=== PATIENT | female | born 1940 | race Caucasian/White ===

== ENCOUNTER 2017-01-28 20:27 | Inpatient (IN) | payer MEDICARE, OTHER ==
[2017-01-28 21:09] LABS: BASOPHIL 0.4 % (0-2); EOSINOPHIL 1.1 % (0-7); HCT 39.7 % (37.0-47.0); HGB 14.2 g/dl (12.5-16.0); MCH 31.4 pg (25.0-31.0); MCHC 35.8 g/dL (32.0-36.0); MCV 87.8 fL (78.0-100.0); MONOCYTE 10.7 % (0-12); MPV 9.8 fL (6.0-9.5); NEUTROPHIL 50.8 % (41-80); PLT 222 K/uL (150-400); RBC 4.52 M/uL (4.20-5.40); WBC 5.3 K/uL (4.0-10.5)
[2017-01-28 21:21] LABS: INR 0.92 (0.9-1.2); PTT 35.8 SECONDS (23.2-31.4)
[2017-01-28 21:28] LABS: ALBUMIN 4.6 g/dL (3.4-4.8); BILIRUBIN - TOTAL 0.6 mg/dL (0.1-1.0); CREATININE 0.6 mg/dL (0.5-1.0); MAGNESIUM 2.35 mg/dL (1.40-2.10); POTASSIUM 3.5 mmol/L (3.5-5.1); TOTAL PROTEIN 7.6 g/dL (6.4-8.3)
[2017-01-28 21:31] LABS: MYOGLOBIN 31 ng/mL (26-65); PRO-BNP 281 pg/mL (0-450); TROPONIN T < 0.010 ng/mL
[2017-01-29 02:18] LABS: BASOPHIL 0.1 % (0-2); EOSINOPHIL 0.1 % (0-7); HGB 14.1 g/dl (12.5-16.0); LYMPHOCYTE 15.3 % (15-48); MCH 31.5 pg (25.0-31.0); MCHC 36.2 g/dL (32.0-36.0); MCV 87.2 fL (78.0-100.0); MONOCYTE 5.4 % (0-12); MPV 9.5 fL (6.0-9.5); NEUTROPHIL 79.1 % (41-80); PLT 230 K/uL (150-400); RBC 4.47 M/uL (4.20-5.40); RDW 12.8 % (11.5-14.0)
[2017-01-29 02:42] LABS: CKMB 2.53 ng/mL (0.97-4.94); TROPONIN T < 0.010 ng/mL
[2017-01-29 02:45] LABS: CREATININE 0.5 mg/dL (0.5-1.0); MAGNESIUM 2.09 mg/dL (1.40-2.10)
[2017-01-29 09:35] LABS: CKMB 2.63 ng/mL (0.97-4.94); TROPONIN T < 0.010 ng/mL
[2017-01-29 09:56] LABS: CREATININE 0.6 mg/dL (0.5-1.0); POTASSIUM 3.9 mmol/L (3.5-5.1)
[2017-01-30 04:40] LABS: BASOPHIL 0.4 % (0-2); EOSINOPHIL 1.1 % (0-7); HCT 37.7 % (37.0-47.0); HGB 13.2 g/dl (12.5-16.0); LYMPHOCYTE 36.8 % (15-48); MCH 31.2 pg (25.0-31.0); MCV 89.1 fL (78.0-100.0); MONOCYTE 12.4 % (0-12); MPV 10.3 fL (6.0-9.5); NEUTROPHIL 49.3 % (41-80); PLT 222 K/uL (150-400); RBC 4.23 M/uL (4.20-5.40); RDW 13.1 % (11.5-14.0); WBC 4.8 K/uL (4.0-10.5)
[2017-01-30 04:52] LABS: CREATININE 0.8 mg/dL (0.5-1.0); MAGNESIUM 2.16 mg/dL (1.40-2.10); POTASSIUM 4.5 mmol/L (3.5-5.1)
[2017-01-30] MEDS ORDERED: ALLEGRA ALLERG180 MG PO (14:35)
[2017-01-30] MEDS ORDERED: PREMARIN0.625 MG PO (14:35)
[2017-01-30] MEDS ORDERED: LIPITOR20 MG PO (14:36)
[2017-01-30] MEDS ORDERED: TOPROL XL 50 MG50 MG PO (14:36)
[2017-01-30] MEDS ORDERED: ASPIRIN CHEWABL81 MG PO (14:36)
[2017-01-30] MEDS ORDERED: SYNTHROID112 MCG PO (14:36)
[2017-01-30] MEDS ORDERED: MAG-OXIDE 400M400 MG PO (14:37)
[2017-01-30] MEDS ORDERED: VITAMIN B-121000 MC1 PO (14:37)
[2017-01-30] MEDS ORDERED: DIOVAN HCT 3201 EAC1 PO (14:37)
== END 2017-01-30 12:30 | disposition home or self-care (01) | DRG 305 ==
LOC: FER 20:27 → FTCU 22:35
PROVIDERS: Emergency Medicine; Internal Medicine Cardiovascular Disease; ADMIT Internal Medicine
DX: I16.1 Hypertensive emergency (principal); E03.9 Hypothyroidism, unspecified; E78.5 Hyperlipidemia, unspecified; I25.118 Atherosclerotic heart disease of native coronary artery with other forms of angina pectoris; E87.6 Hypokalemia; Z79.82 Long term (current) use of aspirin; Z95.1 Presence of aortocoronary bypass graft; Z82.3 Family history of stroke
CPT/HCPCS: 36415; 71010; 80048; 80053; 80061; 82550; 82553; 83036; 83735; 83874; 83880; 84443; 84484; 85025; 85610; 85730; 93005; C9113; G0378; J1644; J2405

== ENCOUNTER 2021-05-02 02:46 | Emergency (ER) | payer MEDICARE, OTHER ==
[~2021-05-02] VITALS: Ht 157.5 cm; Wt 51.8 kg
[~2021-05-02 02:46] MED LIST: ALLEGRA ALLERG180 MG PO; ASPIRIN CHEWABL81 MG PO; DIOVAN HCT 3201 EAC1 PO; LIPITOR20 MG PO; MAG-OXIDE 400M400 MG PO; PREMARIN0.625 MG PO; SYNTHROID112 MCG PO; TOPROL XL 50 MG50 MG PO; VITAMIN B-121000 MC1 PO
[2021-05-02 03:18] LABS: BASOPHIL 0.5 % (0-2); EOSINOPHIL 1.8 % (0-7); HCT 40.2 % (37.0-47.0); HGB 13.9 g/dl (12.5-16.0); LYMPHOCYTE 41.6 % (15-48); MCH 31.7 pg (25.0-31.0); MCHC 34.6 g/dL (32.0-36.0); MCV 91.6 fL (78.0-100.0); MONOCYTE 8.4 % (0-12); MPV 9.6 fL (6.0-9.5); NEUTROPHIL 47.1 % (41-80); NRBC 0; PLT 209 K/uL (150-400); RBC 4.39 M/uL (4.20-5.40); RDW 12.3 % (11.5-14.0); WBC 6.2 K/uL (4.0-10.5)
[2021-05-02 03:26] LABS: INR 0.98 (0.9-1.2); PROTHROMBIN TIME 12.4 SECONDS (11.8-13.4); PTT 35.5 SECONDS (24.4-34.7)
[2021-05-02 03:27] LABS: D-DIMER 0.42 ug/mLFEU (0.00-0.41)
[2021-05-02 03:40] LABS: ALBUMIN 4.1 g/dL (3.4-5.0); BILIRUBIN - TOTAL 0.6 mg/dL (0.2-1.0); CREATININE 0.75 mg/dL (0.51-0.95); FT4 (FREE T4) 1.5 ng/dL (0.76-1.46); GLOBULIN (CALCULATION) 3.8 g/dL; POTASSIUM 3.4 mmol/L (3.5-5.1); TOTAL PROTEIN 7.9 g/dL (6.4-8.2)
[2021-05-02] MEDS ORDERED: ALLEGRA ALLERG180 MG PO (09:40)
[2021-05-02] MEDS ORDERED: ASPIRIN EC81 MG PO (09:40)
[2021-05-02] MEDS ORDERED: TOPROL XL 50 MG50 MG PO (09:40)
[2021-05-02] MEDS ORDERED: COZAAR50 MG PO (09:41)
[2021-05-02] MEDS ORDERED: LIPITOR20 MG PO (09:41)
[2021-05-02] MEDS ORDERED: MAG-OXIDE 400M400 MG PO (09:42)
[2021-05-02] MEDS ORDERED: PREMARIN0.625 MG PO (09:42)
[2021-05-02] MEDS ORDERED: SYNTHROID112 MCG PO (09:43)
[2021-05-02] MEDS ORDERED: NORVASC5 MG PO (09:43)
--- NOTE | 2021-05-02 13:40 | NUR ---
RN WAS NOTIFED AT 1230 THAT PATIENT WAS CRYING AND SHAKING WITH STAFF WHILE TRYING TO GO TO THE BATHROOM. RN ASSESSED PATIENT AT 1235 AFTER RETURNING FROM THE BATHROOM TO FIND PATIENT SMILING, JOKING, AND THANKFUL TO STAFF. RN WAS NOTIFED AT 1310 THAT PT WAS HOLDING CHEST AND SHAKING. WHEN ASKED BY THE LOC[employer] PSYCHIATRIST IF SHE NEEDED THE NURSE SHE STATED "NO I DON'T NEED THE NURSE". THE AUDOGRAPH OPERATOR ROUNDED ON THE PT TO FIND HER SHAKING AND ANXIOUS AND ASKED IF SHE NEEDED THE NURSE OR DOCTOR THE PATIENT STATED "HELL NO. LEAVE MY ROOM". THE PATIENT REQUESTED TO LEAVE AMA AT 1320. THE MD DISCUSSED TREATMENT OPTIONS WITH THE PT AND SHE STILL STATED SHE WAS LEAVING. THE RN HAD HER SIGN THE AMA PAPER AT 1330 AND THE PATIENT STATED "THANK YOU SO MUCH. I APPRECIATE EVERYTHING YOU DID. YOU CANNOT UNDERSTAND WHAT I AM GOING THROUGH RIGHT NOW" RN EDUCATED ON RETURNING TO ER IF SHE SYMPTOMS RETURN/WORSEN. PT ASKED FOR AN ELIQUIS SCRIPT AND WAS INFORMED PRESCRIPTIONS ARE NOT GIVEN WHEN LEAVING AMA. PT WAS TRANSPORTED VIA WHEELCHAIR WITH AUDOGRAPH OPERATOR ASSIST
== END 2021-05-02 16:48 | disposition home or self-care (01) ==
LOC: FER 02:46 → FTCU 09:07 → FER 16:48
PROVIDERS: Emergency Medicine Emergency Medical Services
DX: I48.92 Unspecified atrial flutter (principal); R07.2 Precordial pain; R77.8 Other specified abnormalities of plasma proteins; E87.6 Hypokalemia; I10 Essential (primary) hypertension; I25.10 Atherosclerotic heart disease of native coronary artery without angina pectoris; E78.5 Hyperlipidemia, unspecified; E03.9 Hypothyroidism, unspecified; J30.2 Other seasonal allergic rhinitis; T82.857A Stenosis of other cardiac prosthetic devices, implants and grafts, initial encounter; I77.819 Aortic ectasia, unspecified site; I70.0 Atherosclerosis of aorta; Z53.29 Procedure and treatment not carried out because of patient's decision for other reasons; Z95.1 Presence of aortocoronary bypass graft; Z20.822 Contact with and (suspected) exposure to COVID-19
CPT/HCPCS: 36415; 71045; 80053; 84439; 84443; 84484; 85025; 85379; 85610; 85730; 93005; G0378; J2270; J2405; U0002

== ENCOUNTER 2022-04-11 19:05 | Emergency (ER) | payer MEDICARE, OTHER ==
[~2022-04-11 19:05] MED LIST changes: +ASPIRIN EC81 MG PO; +COZAAR50 MG PO; +NORVASC5 MG PO
[2022-04-11 20:03] LABS: BASOPHIL 0.4 % (0-2); EOSINOPHIL 0.4 % (0-7); HCT 40.8 % (37.0-47.0); HGB 14.1 g/dl (12.5-16.0); LYMPHOCYTE 25.5 % (15-48); MCH 32.1 pg (25.0-31.0); MCHC 34.6 g/dL (32.0-36.0); MCV 92.9 fL (78.0-100.0); MONOCYTE 11.1 % (0-12); MPV 9.5 fL (6.0-9.5); NEUTROPHIL 62.4 % (41-80); NRBC 0; PLT 205 K/uL (150-400); RBC 4.39 M/uL (4.20-5.40); RDW 12.2 % (11.5-14.0); WBC 5.1 K/uL (4.0-10.5)
[2022-04-11 20:13] LABS: INR 1.15 (0.9-1.2); PROTHROMBIN TIME 14.4 SECONDS (11.9-13.9); PTT 42.1 SECONDS (24.9-34.6)
[2022-04-11 20:30] LABS: BILIRUBIN - TOTAL 0.6 mg/dL (0.2-1.0); BUN/CREAT RATIO (CALC) 31.1 RATIO; CREATININE 0.74 mg/dL (0.51-0.95); GLOBULIN (CALCULATION) 3.4 g/dL; POTASSIUM 3.6 mmol/L (3.5-5.1); TOTAL PROTEIN 7.4 g/dL (6.4-8.2)
[2022-04-11 21:54] LABS: CORONAVIRUS 2019 SARS-COV-2 NEGATIVE (NEGATIVE); INFLUENZA A NAA NEGATIVE (NEGATIVE)
== END 2022-04-11 22:40 | disposition home or self-care (01) ==
LOC: FER 19:05
PROVIDERS: Internal Medicine
DX: R07.89 Other chest pain (principal); I10 Essential (primary) hypertension; I49.8 Other specified cardiac arrhythmias; R79.89 Other specified abnormal findings of blood chemistry; Z20.822 Contact with and (suspected) exposure to COVID-19
CPT/HCPCS: 36415; 80053; 83880; 84484; 85025; 85610; 85730; 93005; U0002

== ENCOUNTER 2022-05-06 13:11 | Emergency (ER) | payer MEDICARE, OTHER ==
[2022-05-06 14:44] LABS: BASOPHIL 0.3 % (0-2); BILIRUBIN NEGATIVE (NEGATIVE); BLOOD TRACE-INTACT Ery/uL (NEGATIVE); CLARITY CLEAR (CLEAR); COLOR YELLOW (YELLOW); GLUCOSE (U) NORMAL (NORMAL); HCT 40.7 % (37.0-47.0); LEUKOCYTES NEGATIVE Leu/uL (NEGATIVE); LYMPHOCYTE 17.2 % (15-48); MCH 31.4 pg (25.0-31.0); MCHC 34.4 g/dL (32.0-36.0); MCV 91.3 fL (78.0-100.0); MONOCYTE 8.6 % (0-12); MPV 10.2 fL (6.0-9.5); NEUTROPHIL 72.6 % (41-80); NITRITE NEGATIVE (NEGATIVE); NRBC 0; PLT 191 K/uL (150-400); PROTEIN TRACE (LOW) mg/dL (NEGATIVE); RBC 4.46 M/uL (4.20-5.40); UROBILINOGEN 0.2 mg/dL (0.2-1.0)
[2022-05-06 14:56] LABS: INR 1.22 (0.9-1.2)
[2022-05-06 14:57] LABS: PTT 43.9 SECONDS (24.9-34.6)
[2022-05-06 15:09] LABS: BACTERIA TRACE; URINARY WBC RARE
[2022-05-06 15:12] LABS: CORONAVIRUS 2019 SARS-COV-2 NEGATIVE (NEGATIVE); INFLUENZA A NAA NEGATIVE (NEGATIVE)
[2022-05-06 15:16] LABS: BILIRUBIN - TOTAL 0.7 mg/dL (0.2-1.0); BUN/CREAT RATIO (CALC) 17.6 RATIO; CREATININE 0.74 mg/dL (0.51-0.95); GLOBULIN (CALCULATION) 3.7 g/dL; MAGNESIUM 2.2 mg/dL (1.8-2.4); POTASSIUM 3.9 mmol/L (3.5-5.1); TOTAL PROTEIN 7.7 g/dL (6.4-8.2)
== END 2022-05-06 18:24 | disposition home or self-care (01) ==
LOC: FER 13:11
PROVIDERS: Internal Medicine
DX: K59.00 Constipation, unspecified (principal); R00.2 Palpitations; K76.89 Other specified diseases of liver; R59.9 Enlarged lymph nodes, unspecified; I10 Essential (primary) hypertension; Z20.822 Contact with and (suspected) exposure to COVID-19
CPT/HCPCS: 36415; 71045; 71250; 80053; 81001; 83735; 83880; 84145; 84484; 85025; 85610; 85730; 93005; J3475; U0002